=== PATIENT | female | born 1995 | race Two or more races ===

== ENCOUNTER 2016-07-26 20:53 | Emergency (ER) | payer OTHER ==
[~2016-07-26] VITALS: Ht 165.1 cm; Wt 57.2 kg
[2016-07-26 21:20] VITALS: BP 134/76
[2016-07-26 22:07] LABS: Urine Bilirubin Negative (Negative); Urine Glucose Normal (Normal); Urine Ketone Negative (Negative); Urine Nitrite Negative (Negative); Urine RBC 1 /hpf (0 - 4); Urine Squamous Epithelial Cell FEW /hpf (<5); Urine Urobilinogen Normal (Negative); Urine pH 5.5 (5.0-8.0)
[2016-07-26 22:08] LABS: Urine Blood 2+ /uL (Negative); Urine Color Straw (Yellow)
== END 2016-07-27 01:00 | disposition left against medical advice (07) ==
LOC: ER 20:59
DX: O46.91 Antepartum hemorrhage, unspecified, first trimester (principal); Z53.21 Procedure and treatment not carried out due to patient leaving prior to being seen by health care provider
CPT/HCPCS: 81001